=== PATIENT | female | born 1990 | race Hispanic/Latino ===

== ENCOUNTER 2017-07-20 16:48 | Observation (INO) | payer MEDICAID ==
--- NOTE | 2017-07-20 17:05 | History and Physical Report ---
History of Present Illness Date of examination: 07/20/17 Date of admission: 07/20/2017 Chief complaint: vaginal bleeding History of present illness: Visit Type: Acute Visit CC: abnormal uterine bleeding. History of Present Illness: Patient presents for acute visit. PPV Heavy bleeding since delivery.............aharris Pt is s/p on 07/04/17. Pt was complicated by thrombocytopenia. Since delivery, she has been having epidosed of prolonged vaginal bleeding and passing fist sized clots. She states that after delivery she had heavy bleeding and was givne methergine in house and d/c home on the methergine. While taking the methergine, the bleeding slowed down in the hospital and at home. However, once completed, the bleeding increased again with what pt described as blood "just pouring out.". She went to [facility] ER on Thursday (yesterday) and was given a shot and 4 tablets (apperas to be cytotec by the rx she has in the office) and states again the bleeding improved but this am returned and was heavy with passing clots and using more than one pad per hours. The rx for the cytotec was for her to take one tablet (200mcg) per day. Sono in office shows what appears to be thinckened endometrium with large clots vs pocs. Provider that did the delivey is sure the placenta delivered spontaneously intact. Pt will be admitted for obs and possible D&C pending bleeding she has while admitted. Pt and her mother expressed understanding and agrees with the plan of care. All risk/benefits/alternatives were d/w pt and questions were addressed and answered. She is not sure if her h/h was checked at ER but state she was told her platelets which had been low were 139. She currently denies any dizziness, sob, chest pain or palpitations. Vital Signs: Patient Profile: 26 Years Old Female Height: 69 inches Weight: 147 pounds BMI: 21.71 BP sittin / 72 (left arm) Past History : 3 Term Births: 2 Premature Births: 0 Living Children: 2 Para: 2 Mult. Births: 0 Prev : 0 Prev. attempt? 0 Aborta: 1 Elect. Ab: 0 Spont. 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 of genital herpes: no Partner hx. of genital herpes: no Hx of STD: chlamydia Active Medications (reviewed today): IRON () PNV () PREDNISONE 10 MG (21) ORAL TABLET THERAPY PACK (PREDNISONE) take 3 and 1/2 tablets by mouth daily FORMULA 27-1 MG ORAL TABLET ( VIT-FE FUMARATE-FA) 1 po q day as directed Current Allergies (reviewed today): * SULFA (Critical) * RED DYE 40 (Critical) Past Medical History: Reviewed history from 02/13/2017 and no changes required: Thrombocytopena Ovarian cyst Past Surgical History: Reviewed history from 02/13/2017 and no changes required: negative Social History: Patient is Smoking History: Patient is a former smoker. 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 Social history: no significant social history, - Obstetrical History : 3 Medications and Allergies Allergies Allergy/AdvReac Type Severity Reaction Status Date / Time red dye Allergy Swelling Verified 07/03/17 12:53 Sulfa (Sulfonamide Allergy Rash Verified 07/03/17 12:53 Antibiotics) Home Medications Medication Instructions Recorded Confirmed Last Taken Type Pnv,Calcium 72/Iron/Folic Acid 1 each PO DAILY 07/03/17 07/03/17 07/02/17 21:30 History [Preplus Ca-Fe 27 mg-FA 1 mg Tb] 1 predniSONE [Deltasone] 3.5 tab PO DAILY 07/03/17 07/03/17 07/02/17 21:00 History 1 Ibuprofen [Motrin 600 MG tab] 600 mg PO Q8H PRN #30 tablet 07/04/17 Unknown Rx Methylergonovine [Methergine] 0.2 mg PO BID #6 tablet 07/06/17 Unknown Rx Review of Systems All systems: negative - Physical Exam Abdomen: Positive: normal appearance, soft. Negative: distention, tenderness, guarding Genitourinary (Female): Positive: normal external genitalia, normal perenium Vagina: Positive: other (moderate blood in the vault.) Cervix: Positive: other (tissue vs organized clot removed from the os. once clots removed bleeding decreased) Adnexa: both: normal Extremities: Positive: normal. Negative: tenderness, edema Results All other labs normal. Assessment and Plan - Patient Problems (1) Delayed and secondary hemorrhage, Status: Acute Plan to address problem: -admit for obs -start methergine po -obtain labs -I d/w possible need for D&C to evacute the uterus vs continued medical therapy. Pt and her mother expressed understanding and agrees with plan of care. Will make npo after midnight. (2) Thrombocytopenia affecting Status: Acute Plan to address problem: -check platelets today -will need f/u with hemotology
[2017-07-20] MEDS ORDERED: ZOFRAN IV PRN (17:09)
[2017-07-20] MEDS ORDERED: TYLENOL PO PRN (17:09)
[2017-07-20] MEDS ORDERED: MOTRIN PO PRN (17:09)
[2017-07-20 22:29] LABS: Basophils % (Auto) 0.3 % (0.0-1.8); Eosinophils # (Auto) 0.2 K/mm3 (0.0-0.4); Eosinophils % (Auto) 3.2 % (0.0-4.3); Hematocrit 31.1 % (30.3-42.9); Hemoglobin 10.4 gm/dl (10.1-14.3); Lymphocytes # (Auto) 1.9 K/mm3 (1.2-5.4); Lymphocytes % (Auto) 25.8 % (13.4-35.0); Mean Corpuscular HGB Conc 34 % (30-34); Mean Corpuscular Hemoglobin 31 pg (28-32); Mean Corpuscular Volume 92 fl (79-97); Monocytes # (Auto) 0.6 K/mm3 (0.0-0.8); Platelet Count 193 K/mm3 (140-440); Red Cell Distribution Width 13.9 % (13.2-15.2)
[2017-07-20 22:39] LABS: INR 0.93 (0.87-1.13)
[2017-07-20 22:40] LABS: Partial Thromboplastin Time 32.6 Sec. (24.2-36.6)
[2017-07-20 22:46] LABS: BUN/Creatinine Ratio 17; Blood Urea Nitrogen 12 mg/dL (7-17); Calcium 8.9 mg/dL (8.4-10.2); Hemolysis Index 10
--- NOTE | 2017-07-21 08:05 | Progress Note ---
Assessment and Plan patient standing up cleaning breast pump parts - large amount of breast milk collected. VSSAF, labs reviewed normal - H&H increased since delivery from 8.9/ 26 to 10.4/31.1. Platelets increased from 88 to 193. Patient recently changed pad - nothing on current pad and scant amount of dark blood noted on pad from over night. Advised patient to save pads. Dr. Verma consulted and will re- start methergine PO and continue to watch bleeding. continue current plan of care. - Patient Problems (1) Delayed and secondary hemorrhage, Current Visit: No Status: Acute Subjective - Subjective Date of service: 07/21/17 Principal diagnosis: day #17, delayed PPH Patient reports: appetite normal, voiding normally, ambulating normally, no dizzy ambulation, no nauseated Objective - Vital Signs Latest vital signs: Vital Signs Temp Pulse Resp BP 07/21/17 04:30 98.5 F 61 20 117/76 07/21/17 00:00 98.2 F 60 20 111/55 07/20/17 23:25 18 07/20/17 22:25 18 07/20/17 22:08 98.2 F 74 20 127/75 Intake and Output 07/20/17 07/21/17 07/21/17 23:59 07:59 15:59 Intake Total 480 Balance 480 Intake: Oral 480 Other: Total, Intake Amount 240 Voiding Method Toilet # Voids Void 1 Weight 66.735 kg - Exam Breasts: Present: normal, Cardiovascular: Present: Regular rate Lungs: Present: Clear to auscultation, Normal air movement Abdomen: Present: normal appearance, soft Vulva: both: normal Uterus: Present: normal, firm, fundal height below umbilicus Extremities: Present: normal - Labs Labs: Abnormal lab results 07/20/17 07/20/17 Range/Units 22:01 22:04 RBC 3.40 L (3.65-5.03) M/mm3 [place] % (Auto) 8.0 H (0.0-7.3) % D-Dimer 260.85 H (0-234) ng/mlDDU
[2017-07-21] MEDS: METHERGINE PO SCH ×2 (08:15→16:30)
--- NOTE | 2017-07-21 12:22 | Event Note ---
Date: 07/21/17 26yof s/p ~2weeks ago, her previous hospital course was complicated by thrombocytopenia and uterine atony with bleeding for which she received Methergine. Patient states since her delivery she's had prolonged vaginal bleeding with passing of large clots. She was recently evaluated over the weekend at [facility] which she was given medication (records are not available). She presented to the office for further evaluation where she was noted to have moderate bleeding was admitted for observation. She was started on Methergine by mouth this a.m., with what appears to be appropriate bleeding however patient states between leaving the office yesterday afternoon arriving to the hospital she had severe and heavy bleeding. Patient voiced some concern with delivery of the placenta and was concerned about taking products of conception. She was informed to be difficult to determine if she has retained tissue versus clots in the uterus with dilation and curettage is performed. Patient was also concerned that every time she stops the Methergine and is ambulatory she has further heavy bleeding. Options were discussed: Observation versus dilation and curettage. Patient desires to proceed with dilation and curettage. Questions were encouraged and answered procedure was explained consents were reviewed and signed she voiced understanding and desires to proceed with dilation and curettage stone.
[2017-07-21] MEDS ORDERED: ANCEF/STERILE WATER 2 GM/20 ML 2 GM/20 ML SYRINGE IV NR (13:00)
[2017-07-21] MEDS ORDERED: METHERGINE IM ONE ×2 (14:00→14:50)
[2017-07-21] MEDS ORDERED: SILVER NITRATE TP ONE (14:00)
[2017-07-21] MEDS ORDERED: SUBLIMAZE ONE (14:03)
[2017-07-21] MEDS ORDERED: DIPRIVAN 10 MG/ML IV ONE (14:04)
--- NOTE | 2017-07-21 14:23 | Anesthesia Consultation ---
Anesthesia Consult and Med Hx Date of service: 07/21/17 - Airway Anesthetic Teeth Evaluation: Good ROM Head & Neck: Adequate Mental/Hyoid Distance: Adequate Mallampati Class: Class I Intubation Access Assessment: Good - Pulmonary Exam CTA: Yes - Cardiac Exam Cardiac Exam: RRR - Pre-Operative Health Status ASA Pre-Surgery Classification: ASA2 Proposed Anesthetic Plan: General - Pulmonary Hx Smoking: No Hx Asthma: No COPD: No Hx Pneumonia: No - Cardiovascular System Hx Hypertension: No - Central Nervous System Hx Seizures: No Hx Psychiatric Problems: No - Endocrine Hx Renal Disease: No Hx End Stage Renal Disease: No Hx Hypothyroidism: No Hx Hyperthyroidism: No - Hematic Hx Anemia: No Hx Sickle Cell Disease: No - Other Systems Hx Alcohol Use: No
--- NOTE | 2017-07-21 14:23 | Anesthesia Day of Surgery ---
Anesthesia Day of Surgery - Day of Surgery Patient Examined: Yes Patient H&P Reviewed: Yes Patient is NPO: Yes
[2017-07-21] MEDS ORDERED: NACL 0.9% IR ONE (14:51)
--- NOTE | 2017-07-21 14:59 | Post Operative Note ---
Pre-op diagnosis: bleeding Post-op diagnosis: same Procedure: Suction dilation and curettage Anesthesia: KALEA Surgeon: RAMA GARZON Estimated blood loss: minimal Pathology: list Specimen disposition: to lab Condition: stable Disposition: PACU
[2017-07-21] MEDS ORDERED: LACTATED RINGERS 1,000 ML IV SCH (15:00)
[2017-07-21] MEDS ORDERED: DECADRON ONE (15:05)
[2017-07-21] MEDS ORDERED: XYLOCAINE MPF 2% ONE (15:05)
--- NOTE | 2017-07-21 17:28 | Operative Report ---
Operative Report Operative Report: Date: 07/21/2017 Preoperative diagnosis: 1. Severe bleeding Postoperative diagnosis: 1. Severe bleeding Procedure: Suction dilation and curettage Surgeon: Myah Verma MD Origination Specialist: [] Anesthesiologist: Trini Sears M.D. Anesthesia: Gen. anesthesia EBL: 50 mL Findings: Exam under anesthesia revealed the uterus to be approximately 10 weeks. Uterus was sounded to 10 cm. Blood clots and possible products of conception removed Procedure: After risks, benefits, complications , consequences and alternatives to this procedure discussed patient and she was understanding and desired to proceed, she was taken to the OR where general anesthesia was induced. She was placed in the dorsolithotomy position. Exam under anesthesia as above. She was then prepped and draped in the usual sterile fashion. Timeout was performed. The bladder was drained of approximately 50 mL of clear yellow urine. Operative speculum was introduced into the vagina and the anterior lip of the cervix was then grasped with a single-toothed tenaculum. The cervix was dilated to allow the 8 mm curved Vacurette. Suction curettage at 55 mmHg pressure was performed. Contents of the uterus were evacuated. Then gentle uterine curettage was performed. Once no further tissue was removed the procedure was ended. Speculum and tenaculum were removed and manual uterine massage was performed. Patient was given Methergine 0.2 mg IM. No bleeding from the cervix was noted. The procedure was then ended. Patient was taken to recovery room stable condition.
[2017-07-21 20:01] VITALS: BP 141/80
== END 2017-07-21 20:30 | disposition home or self-care (01) ==
LOC: 3A 16:48 → UNDOADMOB 16:48 → OB 21:47
PROVIDERS: ADMIT Obstetrics & Gynecology; ATTEND Obstetrics & Gynecology
DX: O72.2 Delayed and secondary postpartum hemorrhage (principal); Z87.891 Personal history of nicotine dependence
CPT/HCPCS: 36415; 59160; 80048; 85025; 85379; 85384; 85610; 85730; 88305; 96372; G0378; G0379; J0690; J1100; J2210; J2405; J2704; J3010; J7120

== ENCOUNTER 2017-10-27 10:56 | Day surgery (SDC) | payer MEDICAID ==
--- NOTE | 2017-10-21 12:54 | Anesthesia Consultation ---
Anesthesia Consult and Med Hx Date of service: 10/21/17 - Airway Anesthetic Teeth Evaluation: Good ROM Head & Neck: Adequate Mental/Hyoid Distance: Adequate Mallampati Class: Class I Intubation Access Assessment: Good - Pulmonary Exam CTA: Yes - Cardiac Exam Cardiac Exam: RRR - Pre-Operative Health Status ASA Pre-Surgery Classification: ASA1 Proposed Anesthetic Plan: General - Pre-Anesthesia Comment Pre-Anesthesia Comments: c/o Nausea with Dilatation and Curettage procedure earlier this year. Patient tolerates > 6 METS. no chest pain or SOB - Pulmonary Hx Smoking: Yes Hx Asthma: Yes (as a child) COPD: No Hx Pneumonia: No - Cardiovascular System Hx Hypertension: No - Central Nervous System Hx Seizures: No Hx Psychiatric Problems: No - Endocrine Hx Renal Disease: No Hx End Stage Renal Disease: No Hx Hypothyroidism: No Hx Hyperthyroidism: No - Hematic Hx Anemia: Yes Hx Sickle Cell Disease: No - Other Systems Hx Alcohol Use: Yes (occas) Hx Cancer: No
[2017-10-21 13:13] LABS: Basophils % (Auto) 0.3 % (0.0-1.8); Eosinophils # (Auto) 0.3 K/mm3 (0.0-0.4); Eosinophils % (Auto) 3.8 % (0.0-4.3); Hematocrit 40.2 % (30.3-42.9); Hemoglobin 13.4 gm/dl (10.1-14.3); Lymphocytes % (Auto) 29.1 % (13.4-35.0); Mean Corpuscular HGB Conc 33 % (30-34); Mean Corpuscular Hemoglobin 29 pg (28-32); Mean Corpuscular Volume 86 fl (79-97); Monocytes # (Auto) 0.7 K/mm3 (0.0-0.8); Monocytes % (Auto) 10.2 % (0.0-7.3); Platelet Count 143 K/mm3 (140-440); Red Blood Count 4.66 M/mm3 (3.65-5.03); Red Cell Distribution Width 12.9 % (13.2-15.2)
--- NOTE | 2017-10-22 13:18 | History and Physical Report ---
History of Present Illness Date of examination: 10/22/17 Date of admission: 10/27/17 Chief complaint: wants btl History of present illness: Visit Type: Pre-Op CC: pre op. History of Present Illness: pt presents for pre op: Tubal ligation...katerin I d/w salpingectomy vs felshi clip placement. All risk/benefits/alternatives were d/w pt and questions were addressed and answered. pt desires to have the salpingectomy. Cosents signed and placed on the chart. Vital Signs: Patient Profile: 26 Years Old Female LMP: 10/15/2017 Height: 69 inches Weight: 150 pounds BMI: 22.15 BP sittin / 74 (left arm) Menstrual History: LMP (date): 10/15/2017 Current Method of Contraception: Condoms Past History : 3 Term Births: 2 Premature Births: 0 Living Children: 2 Para: 2 Mult. Births: 0 Prev : 0 Prev. attempt? 0 Aborta: 1 Elect. Ab: 0 Spont. 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 of genital herpes: no Partner hx. of genital herpes: no Hx of STD: chlamydia Active Medications (reviewed today): IB 800MG TABS PRN () IRON () PNV () Current Allergies (reviewed today): * SULFA (Critical) * RED DYE 40 (Critical) Past Medical History: Reviewed history from 02/13/2017 and no changes required: Thrombocytopena Ovarian cyst Past Surgical History: Reviewed history from 07/21/2017 and no changes required: negative D&C: (07/21/2017) Family History Summary: Reviewed history and no changes required: 10/22/2017 General Comments - FH: DM - mother/MGM HTN - MGM CA - MGF lungand liver, no fhx Social History: Reviewed history from 07/20/2017 and no changes required: Patient is Smoking History: Patient is a former smoker. no E/T/D Risk Factors: Smokeless Tobacco Use: Never Drug use: no HIV high-risk behavior: no Alcohol use: no Exercise: no Seatbelt use: 100 % Review of Systems General Denies fever, chills, sweats, anorexia, fatigue, weakness, malaise, weight loss and sleep disorder. Denies nausea, vomiting, headache, swelling of legs, abdominal pain, vaginal discharge, vaginal bleeding and contractions. Denies vaginal discharge, incontinence, dysuria, hematuria, urinary frequency, amenorrhea, menorrhagia, abnormal vaginal bleeding, pelvic pain, genital sores, decreased libido, painful periods, painful sex, urinary urgency, hot flashes, vaginal dryness, vaginal itching and vaginal odor. CV Denies chest pains, palpitations, syncope, dyspnea on exertion, orthopnea, PND and peripheral edema. Resp Denies cough, dyspnea at rest, excessive sputum, hemoptysis, wheezing and pleurisy. GI Denies nausea, vomiting, diarrhea, constipation, change in bowel habits, abdominal pain, melena, hematochezia, jaundice, gas/bloating, indigestion/ heartburn, dysphagia and odynophagia. Endo Denies cold intolerance, heat intolerance, polydipsia, polyphagia, polyuria and unusual weight change. Breast Denies left breast lump, right breast lump, nipple discharge, bloody discharge from nipple, breast pain, abnormal mammogram and breast enlargement. MS Denies back pain, joint pain, joint swelling, muscle cramps, muscle weakness, stiffness, arthritis, sciatica, restless legs, leg pain at night and leg pain with exertion. Derm Denies rash, itching, dryness and suspicious lesions. Neuro Denies paralysis, paresthesias, headache, seizures, tremors, vertigo, transient blindness, frequent falls, frequent headaches and difficulty walking. Psych Denies depression, anxiety, irritability and mood swings. Eyes Denies blurring, diplopia, irritation, discharge, vision loss, eye pain and photophobia. ENT Denies earache, ear discharge, tinnitus, decreased hearing, nasal congestion, nosebleeds, sore throat and hoarseness. Allergy Denies urticaria, allergic rash, hay fever and recurrent infections. Heme Denies abnormal bruising, bleeding and enlarged lymph nodes. 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 smear Family/Genetic History: none Social history: no significant social history, - Obstetrical History : 3 Para: 2 Number of Living Children: 2 Medications and Allergies Allergies Allergy/AdvReac Type Severity Reaction Status Date / Time red dye Allergy Swelling Verified 10/19/17 16:17 Sulfa (Sulfonamide Allergy Rash Verified 10/19/17 16:17 Antibiotics) Home Medications Medication Instructions Recorded Confirmed Last Taken Type Pnv,Calcium 72/Iron/Folic Acid 1 each PO DAILY 07/03/17 10/19/17 07/02/17 21:30 History [Preplus Ca-Fe 27 mg-FA 1 mg Tb] 1 Ferrous Sulfate [Iron] 325 mg PO DAILY 10/19/17 10/19/17 Unknown History Review of Systems All systems: negative - Physical Exam Cardiovascular: Normal S1, Normal S2 Lungs: Positive: Clear to auscultation, Normal air movement Abdomen: Positive: normal appearance, soft. Negative: distention, tenderness, guarding Genitourinary (Female): Positive: other (deferred until EUA) Extremities: Positive: normal. Negative: tenderness, edema Results Result Diagrams: 10/21/17 12:20 All other labs normal. Assessment and Plan - Patient Problems (1) Encounter for sterilization Status: Acute Plan to address problem: -admit and prepare for above procedure -All risk, benefits and alternatives were d/w pt and questions were addressed and answered. -consent signed and given to pt to present at time of pre op visit.
[~2017-10-27 10:56] MED LIST: ANCEF/STERILE WATER 2 GM/20 ML 2 GM/20 ML SYRINGE IV NR; DILAUDID IV PRN; LACTATED RINGERS 1,000 ML IV SCH; TORADOL IV PRN; VERSED IV NR; ZOFRAN IV PRN
--- NOTE | 2017-10-27 13:21 | Anesthesia Day of Surgery ---
Anesthesia Day of Surgery - Day of Surgery Patient Examined: Yes Patient H&P Reviewed: Yes Patient is NPO: Yes Beta Blockers: No Cardiac Clearance: Yes Pulmonary Clearance: Yes
[2017-10-27] MEDS ORDERED: DIPRIVAN 10 MG/ML IV ONE (15:46)
[2017-10-27] MEDS ORDERED: XYLOCAINE MPF 2% ONE (15:46)
[2017-10-27] MEDS ORDERED: ZEMURON IV ONE (15:49)
[2017-10-27] MEDS ORDERED: DECADRON ONE (15:49)
[2017-10-27] MEDS ORDERED: ZOFRAN ONE (15:49)
[2017-10-27] MEDS ORDERED: DILAUDID ONE (15:49)
[2017-10-27] MEDS ORDERED: MARCAINE 0.5% 30 ML INFILTRATI ONE (16:33)
--- NOTE | 2017-10-27 17:42 | Operative Report ---
Operative Report Operative Report: Date of procedure: 10/27/2017 Pre-operative diagnosis: Desires permanent sterilization Post-operative diagnosis: Same Procedure name(s): Laparoscopic bilateral salpingectomy Surgeon: Dr. Denney Lap Winder: ELIANA Anesthesia: Gen. endotracheal anesthesia EBL: Minimal Urine output: 25 mL of clear urine out via straight catheterization prior to the onset of the procedure Fluids: 500 mL Findings: Grossly normal fallopian tubes and ovaries bilaterally Normal uterus with evidence of small perforation via placement of the uterine manipulator area of perforation was noted to be hemostatic Indications: Patient desired permanent sterilization. All risks benefits and alternatives were discussed with the patient. Patient desires bilateral salpingectomy. Procedure: Patient was taken to the operating room and which she was placed under general endotracheal anesthesia. Patient was then prepped and draped in sterile fashion and placed in dorsal lithotomy position in Judson stirrups. Patient underwent straight catheterization. Attention was then turned to the vagina in which a Humi uterine manipulator was placed. Attention was then turned to the umbilicus and which an infraumbilical incision was made with the scalpel 5mm trocar was placed using direct visualization with the camera. Abdomen was then insufflated with gas. 2 additional 5 mm trochars were placed under direct visualization. The fallopian tube was grasp with the grasper elevated cauterized with the LigaSure device transected. Left and right fallopian tube were passed off to pathology. Excellent hemostasis was noted. After tubal ligation was completed all instruments were removed from the abdomen under direct visualization. All gas was also released from the abdomen. The subcuticular fat was reapproximated with 2-0 Vicryl. The skin was approximated with 4-0 Monocryl in a subcuticular stitch. Marcaine was injected into each of the incisions. The patient tolerated procedure well. Sponge, lap, and needle counts were all correct x3 the patient was taken to the recovery room awake and in stable condition.
--- NOTE | 2017-10-27 17:43 | Short Stay Summary ---
Short Stay Documentation Date of service: 10/27/17 - History Principal diagnosis: desires sterilization H&P: dictated Past Surgical History: Other (D&C) Social history: no significant social history, - Allergies and Medications Current Medications: Allergies red dye Allergy (Verified 10/22/17 14:11) Swelling Sulfa (Sulfonamide Antibiotics) Allergy (Verified 10/22/17 14:11) Rash Home Medications Medication Instructions Recorded Confirmed Last Taken Type Pnv,Calcium 72/Iron/Folic Acid 1 each PO DAILY 07/03/17 10/27/17 10/26/17 History [Preplus Ca-Fe 27 mg-FA 1 mg Tb] Ferrous Sulfate [Iron] 325 mg PO DAILY 10/19/17 10/27/17 10/26/17 History Ibuprofen 800 mg PO Q6HR #30 tablet 10/27/17 Unknown Rx oxyCODONE /ACETAMINOPHEN [Percocet 1 tab PO Q4HR #30 tab 10/27/17 Unknown Rx 5/325] Active Medications Hydromorphone HCl (Dilaudid) 0.5 mg IV Q10MIN PRN PRN Reason: Pain , Severe (7-10) Stop: 10/28/17 06:00 Cefazolin Sodium (Ancef/Sterile Water 2 Gm/20 Ml) 2 gm in 20 mls @ 80 mls/hr IV PREOP NR; Protocol Stop: 10/27/17 23:00 Lactated Ringer's (Lactated Ringers) 1,000 mls @ 100 mls/hr IV DIRECT ANTONIO Lactated Ringer's (Lactated Ringers) 1,000 mls @ 100 mls/hr IV DIRECT ANTONIO Ketorolac Tromethamine (Toradol) 30 mg IV ONCE PRN PRN Reason: Pain, Moderate (4-6) Midazolam HCl (Versed) 2 mg IV PREOP NR Stop: 10/27/17 23:59 Ondansetron HCl (Zofran) 4 mg IV ONCE PRN PRN Reason: Nausea And Vomiting - Brief post op/procedure progress note Date of procedure: 10/27/17 Pre-op diagnosis: desires for sterilization Post-op diagnosis: same Procedure: Bilateral salpingectomy Anesthesia: GETA Findings: See operative report Surgeon: KATERINE ALBERTS Estimated blood loss: minimal Pathology: list (portions of left and right fallopian tube) Specimen disposition: to lab - Discharge Diagnoses (1) Encounter for sterilization Status: Acute Short Stay Discharge Plan Activity: no restrictions Weight Bearing Status: Non-Weight Bearing Diet: regular Wound: open to air Follow up with: ÁLVARO RAYMOND MD [Primary Care Provider] - 7 Days Forms: Outpatient [facility] DC Inst. Prescriptions: Ibuprofen 800 mg PO Q6HR #30 tablet oxyCODONE /ACETAMINOPHEN [Percocet 5/325] 1 tab PO Q4HR #30 tab
[2017-10-27] MEDS ORDERED: TORADOL ONE (17:45)
[2017-10-27] MEDS ORDERED: PERCOCET 5/325 PO PRN (18:42)
[2017-10-27 19:21] VITALS: BP 129/87
== END 2017-10-27 10:57 | disposition home or self-care (01) ==
LOC: OR 10:56
PROVIDERS: ATTEND Obstetrics & Gynecology
DX: Z30.2 Encounter for sterilization (principal); J45.909 Unspecified asthma, uncomplicated; F17.200 Nicotine dependence, unspecified, uncomplicated; Z79.899 Other long term (current) drug therapy; Z88.2 Allergy status to sulfonamides; Z91.041 Radiographic dye allergy status
CPT/HCPCS: 36415; 58671; 81025; 84703; 85025; 88302; J0690; J1100; J1170; J1885; J2405; J2704; J7120